=== PATIENT | female | born 1965 | race Caucasian/White ===

== ENCOUNTER 2016-06-24 14:57 | Inpatient (IN) | payer OTHER ==
[~2016-06-24] VITALS: Ht 162.6 cm; Wt 71.1 kg
[~2016-06-24 14:57] MED LIST: IBUP-1542 PO; LORA1TAB PO; ONDA4TAB35 PO; ZOLP10TA PO
[2016-06-24] MEDS ORDERED: ONDANSETRON 4 MG INJ ONE (15:23)
[2016-06-24] MEDS ORDERED: SOD CHLORIDE 0.9% 1,000 ML IV STA (15:33)
[2016-06-24 15:46] LABS: CHLORIDE 103 mmol/L (97-110); SODIUM 144 mmol/L (135-144)
[2016-06-24 15:47] LABS: BASOPHILS % 0.3 % (0.0-2.0); EOSINOPHILS # 0.1 10^3/ul (0.0-0.5); EOSINOPHILS % 0.9 % (0.0-7.0); HEMOGLOBIN 14.7 g/dl (12.0-16.0); LYMPHOCYTES # 4.6 10^3/ul (0.8-2.9); LYMPHOCYTES % 30.8 % (15.0-51.0); MEAN CORPUSCULAR HEMOGLOBIN 30.5 pg (29.0-33.0); MEAN CORPUSCULAR HGB CONC 34.2 g/dl (32.0-37.0); MEAN CORPUSCULAR VOLUME 89.1 fl (82.0-101.0); MEAN PLATELET VOLUME 9.1 fl (7.4-10.4); MONOCYTE # 0.8 10^3/ul (0.3-0.9); MONOCYTES % 5.4 % (0.0-11.0); NEUTROPHIL # 9.3 10^3/ul (1.6-7.5); NEUTROPHILS % 62.6 % (39.0-77.0); PLATELET COUNT 311 10^3/UL (140-440); RED BLOOD COUNT 4.83 10^6/ul (4.20-5.40); UNCORRECTED WBC 14.9 10^3/ul (4.8-10.8); WHITE BLOOD COUNT 14.9 10^3/ul (4.8-10.8)
[2016-06-24 15:49] LABS: ANION GAP 19 (8-16); CARBON DIOXIDE 26 mmol/L (21-31); CREATININE 0.81 mg/dl (0.44-1.00)
[2016-06-24 15:50] LABS: BLOOD UREA NITROGEN 12 mg/dl (7-20); CALCIUM 9.5 mg/dl (8.4-10.2); GLUCOSE 89 mg/dl (70-220)
[2016-06-24 15:51] LABS: CONDITION 1
[2016-06-24 15:55] LABS: INR 0.86; PROTIME 11.7 Sec (12.2-14.2); PT RATIO 0.9
[2016-06-24 15:56] LABS: PARTIAL THROMBOPLASTIN TIME 29.1 Sec (25.0-35.0)
[2016-06-24] MEDS ORDERED: ONDANSETRON 4 MG INJ IV STA (15:56)
[2016-06-24] MEDS ORDERED: DIAZEPAM 5 MG/ML SYG IV ONE ×2 (16:00→16:30)
[2016-06-24 16:02] LABS: TROPONIN-I < 0.010 ng/ml (0.00-0.12)
--- NOTE | 2016-06-24 16:35 | RADRPT ---
PROCEDURE: CT Brain without contrast. CLINICAL INDICATION: Altered mental status, possible stroke TECHNIQUE: Routine CT scan of the brain was performed on a high resolution multi detector scanner without intravenous contrast. One or more of the following dose reduction techniques were used: Auto mated exposure control; Adjustment of the mA and/or kV according to patient size; Use of iterative r econstruction technique. CTDI = 44 mGy. DLP = 630 mGy-cm. COMPARISON: No prior relevant examinations are available for comparison. FINDINGS: Hemorrhage: No evidence of intracranial hemorrhage. Acute ischemic changes: No evidence of acute ischemic changes. Mass effect/Midline shift: None. Parenchymal volume: Within normal limits for age. Ventricular system: Concordant with parenchymal volume. Chronic changes: Small chronic infarcts measuring 5 - 10 mm are present within the left cerebellar h emisphere. Mild chronic-appearing microvascular ischemic changes of the supratentorial white matter . Atherosclerotic calcifications of the cavernous portions of both internal carotid arteries are pre sent. Extracranial soft tissues: Unremarkable. Calvarium: No fractures. Paranasal sinuses: Visualized paranasal sinuses are clear. Mastoid air cells: Visualized mastoid air cells are clear. IMPRESSION: No acute intracranial abnormalities. Mild chronic-appearing microvascular ischemic changes of the supratentorial white matter with small chronic infarcts of the left cerebellar hemisphere. MRI of the brain may be useful for further evaluation. RPTAT: AADD .Francois Keith MD, MD Date Time Electronically viewed and signed by .Francois Keith MD, MD on 06/24/2016 16:35 .B/
--- NOTE | 2016-06-24 17:06 | RADRPT ---
PROCEDURE: MRI Brain without contrast. CLINICAL INDICATION: Vertigo, vomiting, history of cerebellar infarct TECHNIQUE: Multiplanar MRI of the brain without contrast was performed on a 3.0 T scanner with the following sequences obtained: T1-weighted, T2-weighted/FLAIR, diffusion weighted (with ADC map), GR E. COMPARISON: CT brain 06/24/2016 FINDINGS: There are chronic infarcts in the left cerebellar hemisphere. No acute/recent ischemic infarction o r intracranial hemorrhage / blood degradation products are identified. No extra-axial fluid collect ion is seen. There is no mass effect. No midline shift is identified. The ventricles and sulci are within normal limits for size and configuration. Minimal areas of increased T2 / FLAIR signal intensity are present in the periventricular and deep w fortunato matter, nonspecific but likely related to chronic small vessel ischemic changes. Flow voids are identified in the proximal intracranial arteries and dural sinuses suggesting patency . There is a small polyp or retention cyst at the left sphenoid sinus. IMPRESSION: 1. No evidence of acute intracranial pathology. 2. Chronic left cerebellar infarcts. 3. Minimal chronic small vessel ischemic changes. RPTAT: VV .Checo Clifton MD, MD Date Time Electronically viewed and signed by .Checo Clifton MD, on 06/24/2016 17:06 .O/
--- NOTE | 2016-06-24 17:14 | RADRPT ---
PROCEDURE: Chest Radiograph. CLINICAL INDICATION: Stroke TECHNIQUE: Single frontal chest radiograph. COMPARISON: Chest radiograph 04/23/2016 FINDINGS: The heart is magnified. Lung volumes are moderately decreased in there is basilar atelectasis and c entral compressive changes. No infiltrate or effusion is seen. The bones are intact. IMPRESSION: 1. Low lung volumes with basilar atelectasis and central compressive changes. RPTAT: HJBF .Joseph Mcallister MD, MD Date Time Electronically viewed and signed by .Joseph Mcallister MD, on 06/24/2016 17:14 .B/
--- NOTE | 2016-06-24 20:34 | ERA ---
ER Documentation Chief Complaint Date/Time DATE: 06/24/16 TIME: 20:24 Chief Complaint DIZZINESS & HEADACHE ONSET 2HRS AGO; WORSENING VERTIGO & VOMITING X15 MIN HPI This is a 50-year-old female with a history of a cerebellar stroke who is up in the hospital visiting a friend of the family when she says she suddenly felt the room spinning severely . She states she had to grab a hold of the wall to prevent from falling but that she did pass out for 3 seconds. She says she is worried this is another stroke because this is how she presented with her prior cerebellar stroke. She says she does not have chronic vertigo. She had no trouble seeing and had no focal neurological deficits peripherally. She says she is speaking slower than usual and has no problems swallowing. She is complaining of an occipital headache. She has had a few rounds of nausea vomiting when the spinning is severe. This occurred just prior to arrival. She was a code green ROS All systems reviewed and are negative except as per history of present illness. Medications Home Meds Active Scripts Zolpidem Tartrate* (Ambien*) 10 Mg Tablet, 10 MG PO QHS Y for INSOMNIA, #10 TAB Prov:BHARATH JARA MD 04/23/16 Lorazepam* (Lorazepam*) 1 Mg Tablet, 1 MG PO BID Y for ANXIETY, #24 TAB Prov:BHARATH JARA MD 04/23/16 Ondansetron Hcl* (Zofran* ODT) 4 mg -ODT Tab.disper, 4 MG PO Q6 Y for NAUSEA AND /OR VOMITING, #10 TAB Prov:JOY HASSAN MD 01/18/16 Ibuprofen* (Motrin*) 600 Mg Tab, 600 MG PO Q6 Y for PAIN, #20 TAB With food or milk Prov:JOY HASSAN MD 01/18/16 Allergies Allergies: Coded Allergies: No Known Allergy (Unverified , 12/19/14) PMhx/Soc Medical and Surgical Hx: pt denies Surgical Hx History of Surgery: No Anesthesia Reaction: No Hx Neurological Disorder: Yes (STROKE, VERTIGO) Hx Respiratory Disorders: No Hx Cardiac Disorders: Yes (HEART MURMUR) Hx Psychiatric Problems: No Hx Miscellaneous Medical Probl: Yes (ANXIETY) Hx Alcohol Use: No Hx Substance Use: No Hx Tobacco Use: No Smoking Status: Never smoker FmHx Family History: No coronary disease Physical Exam Vitals Vital Signs Date Time Temp Pulse Resp B/P Pulse Ox O2 Delivery O2 Flow Rate FiO2 06/24/16 15:10 Nasal Cannula 2 06/24/16 14:57 97.4 89 24 130/85 100 Physical Exam Const: Well-developed, well-nourished Head: Atraumatic, normocephalic Eyes: Normal Conjunctiva, PERRLA, EOMI, normal sclera, no nystagmus ENT: Normal External Ears, Nose and Mouth, moist mucus membranes. Neck: Full range of motion. No meningismus, no lymphadenopathy. Resp: Clear to auscultation bilaterally, no wheezing, rhonchi, rales Cardio: Regular rate and rhythm, no murmurs, S1 S2 present Abd: Soft, non tender x 4, non distended. Normal bowel sounds, no guarding or rebound, no pulsitile abdominal masses or bruits Skin: No petechiae or rashes, no ecchymosis , no maculopapular rash Back: No midline or flank tenderness Ext: No cyanosis, or edema, FROM x 4, normal inspection, neurovascularly intact x 4 Neur: Awake and alert, STR 5/5 x 4, sensation intact x 4, no focal findings, cerebellum intact, any movement of the bed will induce vertigo. She does not want me to move her Psych: Normal Mood and Affect Result Diagram: 06/24/16 1530 06/24/16 1530 Results 24 hrs Laboratory Tests Test 06/24/16 15:30 Activated Partial Thromboplast Time 29.1Sec Anion Gap 19 Basophils # 0.010^3/ul Basophils % 0.3% Blood Urea Nitrogen 12mg/dl Calcium Level 9.5mg/dl Carbon Dioxide Level 26mmol/L Chloride Level 103mmol/L Creatinine 0.81mg/dl Eosinophils # 0.110^3/ul Eosinophils % 0.9% Glucose Level 89mg/dl Hematocrit 43.0% Hemoglobin 14.7g/dl INR International Normalized Ratio 0.86 Lymphocytes # 4.610^3/ul Lymphocytes % 30.8% Mean Corpuscular Hemoglobin 30.5pg Mean Corpuscular Hemoglobin Concent 34.2g/dl Mean Corpuscular Volume 89.1fl Mean Platelet Volume 9.1fl Monocytes # 0.810^3/ul Monocytes % 5.4% Neutrophils # 9.310^3/ul Neutrophils % 62.6% Nucleated Red Blood Cells # 0.010^3/ul Nucleated Red Blood Cells % 0.0/100WBC Platelet Count 04280^3/UL Potassium Level 4.0mmol/L Prothrombin Time 11.7Sec Prothrombin Time Ratio 0.9 Red Blood Count 4.8310^6/ul Red Cell Distribution Width 14.0% Sodium Level 144mmol/L Troponin I < 0.010ng/ml White Blood Count 14.910^3/ul Current Medications Medications (Trade) Dose Ordered Sig/Julain Route PRN Reason Start Time Stop Time Status Last Admin Dose Admin Sodium Chloride (NS) 1,000 ml @ 1,000 mls/hr Q1H STAT IV 06/24/16 15:33 06/24/16 16:32 DC 06/24/16 15:57 Diazepam (Valium) 10 mg ONCE ONCE IV 06/24/16 16:00 06/24/16 16:01 DC 06/24/16 15:57 Ondansetron HCl (Zofran Inj) 4 mg STK-MED ONCE .ROUTE 06/24/16 15:23 06/24/16 15:39 DC Ondansetron HCl (Zofran Inj) 4 mg ONCE STAT IV 06/24/16 15:56 06/24/16 15:57 DC 06/24/16 16:02 Diazepam (Valium) 5 mg ONCE ONCE IV 06/24/16 16:30 06/24/16 16:31 DC 06/24/16 18:52 Procedures/MDM PROCEDURE: Chest Radiograph. CLINICAL INDICATION: Stroke TECHNIQUE: Single frontal chest radiograph. COMPARISON: Chest radiograph 04/23/2016 FINDINGS: The heart is magnified. Lung volumes are moderately decreased in there is basilar atelectasis and central compressive changes. No infiltrate or effusion is seen. The bones are intact. IMPRESSION: 1. Low lung volumes with basilar atelectasis and central compressive changes. RPTAT: HJBF .Joseph Mcallister MD, Date Time Electronically viewed and signed by .Joseph Mcallister MD, on 2016 17:14 .B/ CC: RADAMES VEE DO PROCEDURE: CT Brain without contrast. CLINICAL INDICATION: Altered mental status, possible stroke TECHNIQUE: Routine CT scan of the brain was performed on a high resolution multi detector scanner without intravenous contrast. One or more of the following dose reduction techniques were used: Automated exposure control; Adjustment of the mA and/or kV according to patient size; Use of iterative reconstruction technique. CTDI = 44 mGy. DLP = 630 mGy-cm. COMPARISON: No prior relevant examinations are available for comparison. FINDINGS: Hemorrhage: No evidence of intracranial hemorrhage. Acute ischemic changes: No evidence of acute ischemic changes. Mass effect/Midline shift: None. Parenchymal volume: Within normal limits for age. Ventricular system: Concordant with parenchymal volume. Chronic changes: Small chronic infarcts measuring 5 - 10 mm are present within the left cerebellar hemisphere. Mild chronic-appearing microvascular ischemic changes of the supratentorial white matter. Atherosclerotic calcifications of the cavernous portions of both internal carotid arteries are present. Extracranial soft tissues: Unremarkable. Calvarium: No fractures. Paranasal sinuses: Visualized paranasal sinuses are clear. Mastoid air cells: Visualized mastoid air cells are clear. IMPRESSION: No acute intracranial abnormalities. Mild chronic-appearing microvascular ischemic changes of the supratentorial white matter with small chronic infarcts of the left cerebellar hemisphere. MRI of the brain may be useful for further evaluation. RPTAT: AADD .Francois Keith MD, MD Date Time Electronically viewed and signed by .Francois Keith MD, MD on 06/24/2016 16:35 .B/ CC: RADAMES VEE DO PROCEDURE: MRI Brain without contrast. CLINICAL INDICATION: Vertigo, vomiting, history of cerebellar infarct TECHNIQUE: Multiplanar MRI of the brain without contrast was performed on a 3.0 T scanner with the following sequences obtained: T1-weighted, T2-weighted/ FLAIR, diffusion weighted (with ADC map), GRE. COMPARISON: CT brain 06/24/2016 FINDINGS: There are chronic infarcts in the left cerebellar hemisphere. No acute/recent ischemic infarction or intracranial hemorrhage / blood degradation products are identified. No extra-axial fluid collection is seen. There is no mass effect. No midline shift is identified. The ventricles and sulci are within normal limits for size and configuration. Minimal areas of increased T2 / FLAIR signal intensity are present in the periventricular and deep white matter, nonspecific but likely related to chronic small vessel ischemic changes. Flow voids are identified in the proximal intracranial arteries and dural sinuses suggesting patency. There is a small polyp or retention cyst at the left sphenoid sinus. IMPRESSION: 1. No evidence of acute intracranial pathology. 2. Chronic left cerebellar infarcts. 3. Minimal chronic small vessel ischemic changes. RPTAT: VV .Checo Clifton MD, MD Date Time Electronically viewed and signed by .Checo Clifton MD, MD on 06/24/2016 17:06 .O/ CC: RADAMES VEE DO EKG: Rate/Rhythm: Normal Sinus Rhythm,NL intervals QRS, ST, QT: NORMAL ID, QRS, QT] Impression: NORMAL EKG Patient had multiple rounds of Valium IV she took Antivert prior to coming down stairs to the ER. She still had a few episodes of vomiting. Currently shows she still has occipital headache and still vertiginous but better. We will admit her for intractable vertigo. MRI does not show any evidence of stroke. CAT scan shows no intracranial hemorrhage. This is likely a peripheral vertigo but will need observation in case she does develop some neurological symptoms as this is how she presented with her last stroke Departure Diagnosis: Primary Impression: Vertigo Additional Impression: Intractable vomiting Qualified Code: R11.2 - Intractable vomiting with nausea, unspecified vomiting type Condition: Stable RADAMES VEE DO Jun 24, 2016 20:33
[2016-06-24] MEDS ORDERED: SIMV20TA97 PO (20:46)
[2016-06-24] MEDS ORDERED: ASPI325T4 PO (20:46)
[2016-06-24] MEDS ORDERED: MECL-77 PO (20:47)
[2016-06-24 21:08] VITALS: TEMP 97.9
[2016-06-24] MEDS ORDERED: ACETAMINOPHEN 325 MG TAB PO PRN ×2 (22:30→23:00)
[2016-06-24] MEDS ORDERED: ONDANSETRON 4 MG INJ IV PRN ×2 (22:30→23:00)
[2016-06-24] MEDS: SOD CHLORIDE 0.9% 1,000 ML IV SCH (22:38)
--- NOTE | 2016-06-24 22:48 | HP ---
Date/Time of Note Date/Time of Note DATE: 06/24/16 TIME: 22:41 Assessment/Plan VTE Prophylaxis VTE Prophylaxis Intervention: LMWH Assessment/Plan Assessment/Plan 50 yo female with past medical history of left cerebellar infarct 2013, who presents with Code Green 2/2 to having intractable dizziness. 1. Vertigo - repeat CVA vs other - will admit the patient to telemetry, consult neurology, fall precautions, neurovascular checks, ECHO, PT/OT, continue with antivert and aspirin, check cardiac enzymes, TSH, Mag level 2. Intractable nausea/vomiting - continue with zofran, if worsening consider reglan 3. Leukocytosis - reactive - will monitor trend, if worsening, start antibiotics , obtain cultures 4. GI ppx - pepcid 5. DVT ppx - lovenox answered all of her questions. as per clinical course. this history and physical took greater then 45 minutes to complete HPI/ROS Admit Date/Time Admit Date/Time 06/24/2016, 10:41 pm Hx of Present Illness 50 yo female with past medical history of left cerebellar infarct 2013, who presents with Code Green 2/2 to having intractable dizziness. The patient usually takes her antivert to help, because of the residual side effect of her cerebellar infarct. It was not getting better, had intractable nausea/vomiting x 3 episodes NBNB, and worsening dizziness. Denies any chest pain, shortness of breath, urinary/bowel irregularities or other constitutional symptoms. No recent travel or illnesses. ED course: zofran ROS 14 point review of systems completed, please refer to HPI for any positive findings PMH/Family/Social Past Medical History CVA cerebellar Past Surgical History TBL Family History Significant Family History: heart disease, cancer, diabetes, hypertension Social History Alcohol Use: none Smoking Status: Never smoker Drug Use: none Exam/Review of Systems Vital Signs Vitals Vital Signs Date Time Temp Pulse Resp B/P Pulse Ox O2 Delivery O2 Flow Rate FiO2 06/24/16 21:08 97.9 82 17 103/60 99 Room Air 06/24/16 15:10 2 Exam Exam Gen Heike: moderate distress 2/2 headache, AAOx4 HEENT: NC/AT, PERRLA, EOMI, no pharyngeal erythema, no tonsillar exudates, no lymphadenopathy, no JVD, no carotid bruits NECK: supple, no thyromegaly THORAX: symmetrical, no obvious deformities CV: S1S2, RRR, no M/G/R Lungs: CTAB no W/C/R/R Abd: soft, NT/ND, +BS, no rebound, no guarding, neg HSM EXT: no edema, no ecchymosis, no clubbing, FROM Neuro: CN II-XII grossly intact, difficult to asses rhombergs 2/2 dizziness Psych: good mentation, alert and oriented, good mood and affect Skin: C/D/I Labs Result Diagram: 06/24/16 1530 06/24/16 1530 Procedures Procedures CXR IMPRESSION: 1. Low lung volumes with basilar atelectasis and central compressive changes. MRI brain IMPRESSION: 1. No evidence of acute intracranial pathology. 2. Chronic left cerebellar infarcts. 3. Minimal chronic small vessel ischemic changes. CT brain IMPRESSION: No acute intracranial abnormalities. Mild chronic-appearing microvascular ischemic changes of the supratentorial white matter with small chronic infarcts of the left cerebellar hemisphere. MRI of the brain may be useful for further evaluation. CORY CHASE MD Jun 24, 2016 22:48
[2016-06-24] MEDS ORDERED: LORAZEPAM 2 MG INJ IV PRN (23:00)
[2016-06-24] MEDS ORDERED: NACL 0.9% 3 ML SYG IV SCH (23:00)
[2016-06-24] MEDS ORDERED: MECLIZINE 25 MG TAB PO PRN (23:00)
[2016-06-24] MEDS ORDERED: ATORVASTATIN 10 MG TAB PO SCH (23:00)
[2016-06-24] MEDS ORDERED: DOCUSATE SODIUM 100 MG CAP PO PRN (23:00)
[2016-06-24] MEDS ORDERED: morphine 2 MG INJ IV PRN (23:00)
[2016-06-24] MEDS ORDERED: NITROGLYCERIN (SL) 0.4 MG TAB SL PRN (23:00)
[2016-06-25] VITALS (9 sets, daily range): BP systolic 91–114; BP diastolic 51–70; PULSE 66–87; RESP 17–20; Ht 162.6 cm; Wt 71.1 kg
[2016-06-25] MEDS: SOD CHLORIDE 0.9% 1,000 ML IV SCH (00:18)
[2016-06-25 00:19] LABS: CREATINE KINASE 70 IU/L (23-200)
[2016-06-25 00:20] LABS: CHOL/HDL RATIO 5.4 RATIO; MAGNESIUM 2.1 mg/dl (1.7-2.5)
[2016-06-25 00:29] LABS: CK-MB < 0.22 ng/ml (0.0-2.4)
[2016-06-25 00:32] LABS: TROPONIN-I < 0.010 ng/ml (0.00-0.12)
[2016-06-25 00:52] LABS: THYROID STIMULATING HORMONE 0.724 MIU/L (0.465-4.680)
[2016-06-25 08:02] LABS: BASOPHIL # 0.1 10^3/ul (0.0-0.1); BASOPHILS % 0.4 % (0.0-2.0); EOSINOPHILS # 0.1 10^3/ul (0.0-0.5); EOSINOPHILS % 0.4 % (0.0-7.0); HEMATOCRIT 37.9 % (37.0-47.0); HEMOGLOBIN 12.7 g/dl (12.0-16.0); LYMPHOCYTES # 3.5 10^3/ul (0.8-2.9); LYMPHOCYTES % 20.1 % (15.0-51.0); MEAN CORPUSCULAR HEMOGLOBIN 30.4 pg (29.0-33.0); MEAN CORPUSCULAR HGB CONC 33.6 g/dl (32.0-37.0); MEAN CORPUSCULAR VOLUME 90.5 fl (82.0-101.0); MEAN PLATELET VOLUME 9.1 fl (7.4-10.4); MONOCYTE # 0.8 10^3/ul (0.3-0.9); MONOCYTES % 4.5 % (0.0-11.0); NEUTROPHILS % 74.6 % (39.0-77.0); PLATELET COUNT 271 10^3/UL (140-440); POTASSIUM 3.8 mmol/L (3.5-5.1); RED BLOOD COUNT 4.19 10^6/ul (4.20-5.40); RED CELL DISTRIBUTION WIDTH 13.9 % (11.5-14.5); UNCORRECTED WBC 17.4 10^3/ul (4.8-10.8); WHITE BLOOD COUNT 17.4 10^3/ul (4.8-10.8)
[2016-06-25 08:03] LABS: CONDITION 1
[2016-06-25 08:04] LABS: CREATININE 0.8 mg/dl (0.44-1.00)
[2016-06-25 08:05] LABS: CALCIUM 9.2 mg/dl (8.4-10.2)
[2016-06-25 08:51] LABS: CREATINE KINASE 49 IU/L (23-200)
[2016-06-25] MEDS ORDERED: ENOXAPARIN 40 MG/0.4 ML SYG SC SCH (09:00)
[2016-06-25] MEDS ORDERED: ASPIRIN 325 MG TAB PO SCH (09:00)
[2016-06-25] MEDS ORDERED: FAMOTIDINE 20 MG INJ IV SCH (09:00)
[2016-06-25 09:17] LABS: CK-MB < 0.22 ng/ml (0.0-2.4); TROPONIN-I < 0.012 ng/ml (0.00-0.12)
--- NOTE | 2016-06-25 12:02 | CONS ---
Date/Time of Note Date/Time of Note DATE: 06/25/16 TIME: 11:54 Assessment/Plan Assessment/Plan Chief Complaint/Hosp Course 50 year old female with history of previous left cerebellar infarcts unclear etiology presenting with severe vertigo, treated with IVF and meclizine with improvement of symptoms. -MRI Brain without contrast reviewed- chronic left cerebellar infarcts -may continue on current dose of ASA and statin for secondary stroke prevention -continue on prn Meclizine for vertigo -outpatient PT to help with vertigo exercises -may be discharged later today if symptoms are resolved -outpatient neurology follow up Problems: Consultation Date/Type/Reason Admit Date/Time 06/24/2016, 10:41 pm Date of Consultation: Jun 25, 2016 Type of Consultation: Neurology Reason for Consultation vertigo Referring Provider: CORY CHASE MD Hx of Present Illness 50 year old female with history of previous left cerebellar infarcts December 2014 presented with severe vertigo and intractable nausea/vomiting at that time. Her symptoms at that time persisted for over 9 days and eventually she received an MRI at [facility] confirming cerebellar stroke. Since then she occasionally experiences vertigo for which she takes prn meclizine at home, occasionally has bouts of anxiety also takes prn ativan. She presents due to complaints of headache and severe dizziness room spinning sensation yesterday, on arrival MRI was done to r/o possibility of new cerebellar stroke given previous history, showed no evidence of new ischemia. She was given IVF, anti-emetics and meclizine with resolution of symptoms. At home she takes ASA 325 mg and Simvastatin for secondary stroke prevention, etiology of previous stroke is unclear. In the past she has attempted Ramone's maneuver with worsening of sx. Past Medical History prior cerebellar stroke migraine motion sickness vertigo chronic Social History Alcohol Use: none Smoking Status: Current every day smoker Drug Use: none Exam/Review of Systems Vital Signs Vitals Vital Signs Date Time Temp Pulse Resp B/P Pulse Ox O2 Delivery O2 Flow Rate FiO2 06/25/16 08:29 68 06/25/16 08:15 97.7 17 91/55 93 06/25/16 04:27 Room Air 06/24/16 15:10 2 Intake and Output 06/24/16 06/24/16 06/25/16 15:00 23:00 07:00 Intake Total 625 ml Balance 625 ml Exam Constitutional: alert, oriented, well developed Psych: no complaints Head: atraumatic, normocephalic Eyes: EOMI, nl conjunctiva Neurological: CLINICAL MATERIAL [employer]ER II-XII intact, DTR's symmetric, nl mental status, nl speech Results Result Diagram: 06/25/16 0630 06/25/16 0630 Results 24 hrs Laboratory Tests Test 06/24/16 15:30 06/24/16 23:55 06/25/16 06:30 Activated Partial Thromboplast Time 29.1 Anion Gap 19 H 13 Basophils # 0.0 0.1 Basophils % 0.3 0.4 Blood Urea Nitrogen 12 15 Calcium Level 9.5 9.2 Carbon Dioxide Level 26 29 Chloride Level 103 107 Creatinine 0.81 0.80 Eosinophils # 0.1 0.1 Eosinophils % 0.9 0.4 Glucose Level 89 108 Hematocrit 43.0 37.9 Hemoglobin 14.7 12.7 INR International Normalized Ratio 0.86 Lymphocytes # 4.6 H 3.5 H Lymphocytes % 30.8 20.1 Mean Corpuscular Hemoglobin 30.5 30.4 Mean Corpuscular Hemoglobin Concent 34.2 33.6 Mean Corpuscular Volume 89.1 90.5 Mean Platelet Volume 9.1 9.1 Monocytes # 0.8 0.8 Monocytes % 5.4 4.5 Neutrophils # 9.3 H 13.0 H Neutrophils % 62.6 74.6 Nucleated Red Blood Cells # 0.0 0.0 Nucleated Red Blood Cells % 0.0 0.0 Platelet Count 311 271 Potassium Level 4.0 3.8 Prothrombin Time 11.7 L Prothrombin Time Ratio 0.9 Red Blood Count 4.83 4.19 L Red Cell Distribution Width 14.0 13.9 Sodium Level 144 145 H Troponin I < 0.010 < 0.010 < 0.012 White Blood Count 14.9 #H 17.4 H Cholesterol Level 262 H Cholesterol/HDL Ratio 5.4 Creatine Kinase 70 49 Creatine Kinase Index 0.3 0.4 Creatinine Kinase MB (Mass) < 0.22 < 0.22 HDL Cholesterol 48 Hemoglobin A1c 5.3 LDL Cholesterol, Calculated 184 Magnesium Level 2.1 Thyroid Stimulating Hormone (TSH) 0.724 Triglycerides Level 149 Medications Medications Current Medications Lorazepam (Ativan) 0.5 mg Q6H PRN IV ANXIETY; Start 06/24/16 at 23:00 Ondansetron HCl (Zofran Inj) 4 mg Q6H PRN IV NAUSEA AND/OR VOMITING; Start 04/30 at 23:00 Nitroglycerin (Nitroglycerin (Sl Tab) 0.4 Mg) 1 tab Q5M PRN SL CHEST PAIN; Start 06/24/16 at 23:00 Acetaminophen (Tylenol Tab) 650 mg Q6H PRN PO PAIN LEVEL 1-3 OR FEVER; Start at 23:00 Morphine Sulfate (morphine) 2 mg Q4H PRN IV PAIN LEVEL 7-10; Start 06/24/16 at 23:00 Docusate Sodium (Colace) 100 mg Q12H PRN PO CONSTIPATION; Start 06/24/16 at 23: 00 Famotidine (Pepcid Iv) 20 mg Q12 IV Last administered on 06/25/16 08:23; Admin Dose 20 MG; Start 06/25/16 at 09:00 Enoxaparin Sodium (Lovenox) 40 mg DAILY SC Last administered on 06/25/16 08:24 ; Admin Dose 40 MG; Start 06/25/16 at 09:00 Aspirin (Aspirin) 325 mg DAILY PO Last administered on 06/25/16 08:23; Admin Dose 325 MG; Start 06/25/16 at 09:00 Meclizine HCl (Antivert) 25 mg Q8H PRN PO DIZZINESS Last administered on 00:09; Admin Dose 25 MG; Start 06/24/16 at 23:00 Atorvastatin Calcium (Lipitor) 10 mg DAILY@21 PO Last administered on 00:08; Admin Dose 10 MG; Start 06/24/16 at 23:00 MEAGHAN FARIAS MD Jun 25, 2016 12:02
--- NOTE | 2016-06-25 13:44 | RADRPT ---
Echocardiogram Report Patient Name: ADLEN MANNING Gender: Female Date: 1965 Study Date: 25-Jun-2016 Coverer: Susy Cui [facility] Location: [id number] Ref. Physician: CORY CHASE Quality: Good Procedures: Transthoracic echocardiogram with complete 2D, M-Mode, and doppler examination. Indications: Vertigo. 2D/M Mode Doppler Measurement Value Normal Ranges Measurement Value Normal Ranges LVIDd 2D 5.1 3.5 - 5.6 cm AV Peak Mark 1.3 m/sec LVIDs 2D 2.8 2.1 - 4.1 cm AV Peak PG 6.0 mmHg FS 2D 44.9 % LVOT Peak Mark 0.9 m/sec LVPWd 2D 0.8 0.6 - 1.1 cm LVOT Peak PG 3.0 mmHg IVSd 2D 0.7 0.6 - 1.1 cm MV E Peak Mark 0.8 m/sec IVS/LVPW 2D 0.9 MV A Peak Mark 0.6 m/sec AoR Diam 2D 3.0 2.0 - 3.7 cm MV E/A 1.4 LA/Ao 2D 1 0 - 1 MV Decel Time 190 msec EDV 2D 133.0 cm3 MV E/A 1.4 ESV 2D 22.2 cm3 LA Dimen 2D 2.8 2.3 - 4.0 cm Findings Left Ventricle: Normal left ventricular systolic function. Normal left ventricular cavity size. Normal left ventricular wall thickness. Ejection fraction is visually estimated at 5560 %. Tissue Doppler/Mitral Doppler indices are within normal limits. Right Ventricle: Normal right ventricular size. Normal right ventricular systolic function. Left Atrium: The left atrium is normal in size. Right Atrium: The right atrium is normal in size. Mitral Valve: Normal appearance and function of the mitral valve with trace physiologic regurgitation. Aortic Valve: Normal appearance of the aortic valve. No significant aortic stenosis or insufficiency. Tricuspid Valve: Normal appearance of the tricuspid valve. Unable to obtain RVSP due to minimal presence of tricuspid regurgitation. Pericardium: Normal pericardium with no significant pericardial effusion. Aorta: Normal aortic root. IVC: Normal size and normal respiratory collapse consistent with normal right atrial pressure. Conclusions 1.Normal left ventricular systolic function. Normal left ventricular cavity size. Normal left ventricular wall thickness. Ejection fraction is visually estimated at 55-60 %. Tissue Doppler/Mitral Doppler indices are within normal limits. 2.Normal appearance and function of the mitral valve with trace physiologic regurgitation. 3.Normal appearance of the tricuspid valve. Unable to obtain RVSP due to minimal presence of tricuspid regurgitation. Electronically Signed By: Marshall Calloway 25-Jun-2016 13:44:08 -0800 Patient Name: ALDEN MANNING Study Date: 25-Jun-[id number]
--- NOTE | 2016-06-25 14:36 | DS ---
Date/Time of Note Date/Time of Note DATE: 06/25/16 TIME: 14:30 Discharge Summary Admission/Discharge Info Admit Date/Time Jun 24, 2016 at 22:21 Discharge Date/Time Final Diagnosis 1. Vertigo - due to old cerebellar infarct, no acute infarct on MRI, meclizine prn 2. Intractable nausea/vomiting, due to vertigo, resolved 3. Leukocytosis, like reactive, no source of infection Patient Condition: Stable Procedures [place] [id number] Radiology Main Line: [phone] DIAGNOSTIC IMAGING REPORT Patient: ALDEN MANNING : 1965 Age: 50 Sex: F MR #: [id number] DOS: 06/24/16 1533 Ordering MD: RADAMES VEE DO Location: E/R Room/Bed: PROCEDURE: MRI Brain without contrast. CLINICAL INDICATION: Vertigo, vomiting, history of cerebellar infarct TECHNIQUE: Multiplanar MRI of the brain without contrast was performed on a 3.0 T scanner with the following sequences obtained: T1-weighted, T2-weighted/ FLAIR, diffusion weighted (with ADC map), GRE. COMPARISON: CT brain 06/24/2016 FINDINGS: There are chronic infarcts in the left cerebellar hemisphere. No acute/recent ischemic infarction or intracranial hemorrhage / blood degradation products are identified. No extra-axial fluid collection is seen. There is no mass effect. No midline shift is identified. The ventricles and sulci are within normal limits for size and configuration. Minimal areas of increased T2 / FLAIR signal intensity are present in the periventricular and deep white matter, nonspecific but likely related to chronic small vessel ischemic changes. Flow voids are identified in the proximal intracranial arteries and dural sinuses suggesting patency. There is a small polyp or retention cyst at the left sphenoid sinus. IMPRESSION: 1. No evidence of acute intracranial pathology. 2. Chronic left cerebellar infarcts. 3. Minimal chronic small vessel ischemic changes. RPTAT: VV .Checo Clifton MD, Date Time Electronically viewed and signed by .Checo Clifton MD, MD on 06/24/2016 17:06 Hx of Present Illness 50 yo female with past medical history of left cerebellar infarct 2013, who presents with Code Green 2/2 to having intractable dizziness. The patient usually takes her antivert to help, because of the residual side effect of her cerebellar infarct. It was not getting better, had intractable nausea/vomiting x 3 episodes NBNB, and worsening dizziness. Denies any chest pain, shortness of breath, urinary/bowel irregularities or other constitutional symptoms. No recent travel or illnesses. Hospital Course 50 year old female with history of previous left cerebellar infarcts unclear etiology presenting with severe vertigo, treated with IVF and meclizine with improvement of symptoms. -MRI Brain without contrast reviewed- chronic left cerebellar infarcts -may continue on current dose of ASA and statin for secondary stroke prevention -continue on prn Meclizine for vertigo -outpatient PT to help with vertigo exercises -may be discharged later today if symptoms are resolved -outpatient neurology follow up Home Meds Reported Medications Meclizine Hcl* (Meclizine Hcl*) 25 Mg Tablet, 25 MG PO Q8H Y for DIZZINESS, TAB 06/24/16 Simvastatin* (Zocor*) 20 Mg Tablet, 20 MG PO QHS, #30 TAB 06/24/16 Aspirin* (Aspirin*) 325 Mg Tablet, 325 MG PO DAILY, TAB 06/24/16 Discontinued Scripts Zolpidem Tartrate* (Ambien*) 10 Mg Tablet, 10 MG PO QHS Y for INSOMNIA, #10 TAB Prov:BHARATH JARA MD 04/23/16 Lorazepam* (Lorazepam*) 1 Mg Tablet, 1 MG PO BID Y for ANXIETY, #24 TAB Prov:BHARATH JARA MD 04/23/16 Ondansetron Hcl* (Zofran* ODT) 4 mg -ODT Tab.disper, 4 MG PO Q6 Y for NAUSEA AND /OR VOMITING, #10 TAB Prov:JOY HASSAN MD 01/18/16 Ibuprofen* (Motrin*) 600 Mg Tab, 600 MG PO Q6 Y for PAIN, #20 TAB With food or milk Prov:JOY HASSAN MD 01/18/16 Follow-up Plan PCP 2 weeks Pending Labs Laboratory Tests Test 06/24/16 15:30 06/24/16 23:55 06/25/16 06:30 Activated Partial Thromboplast Time 29.1Sec (25.0-35.0) Anion Gap 19 (8-16) 13 (8-16) Basophils # 0.010^3/ul (0.0-0.1) 0.110^3/ul (0.0-0.1) Basophils % 0.3% (0.0-2.0) 0.4% (0.0-2.0) Blood Urea Nitrogen 12mg/dl (7-20) 15mg/dl (7-20) Calcium Level 9.5mg/dl (8.4-10.2) 9.2mg/dl (8.4-10.2) Carbon Dioxide Level 26mmol/L (21-31) 29mmol/L (21-31) Chloride Level 103mmol/L (97-110) 107mmol/L (97-110) Creatinine 0.81mg/dl (0.44-1.00) 0.80mg/dl (0.44-1.00) Eosinophils # 0.110^3/ul (0.0-0.5) 0.110^3/ul (0.0-0.5) Eosinophils % 0.9% (0.0-7.0) 0.4% (0.0-7.0) Glucose Level 89mg/dl (70-220) 108mg/dl (70-220) Hematocrit 43.0% (37.0-47.0) 37.9% (37.0-47.0) Hemoglobin 14.7g/dl (12.0-16.0) 12.7g/dl (12.0-16.0) INR International Normalized Ratio 0.86 Lymphocytes # 4.610^3/ul (0.8-2.9) 3.510^3/ul (0.8-2.9) Lymphocytes % 30.8% (15.0-51.0) 20.1% (15.0-51.0) Mean Corpuscular Hemoglobin 30.5pg (29.0-33.0) 30.4pg (29.0-33.0) Mean Corpuscular Hemoglobin Concent 34.2g/dl (32.0-37.0) 33.6g/dl (32.0-37.0) Mean Corpuscular Volume 89.1fl (82.0-101.0) 90.5fl (82.0-101.0) Mean Platelet Volume 9.1fl (7.4-10.4) 9.1fl (7.4-10.4) Monocytes # 0.810^3/ul (0.3-0.9) 0.810^3/ul (0.3-0.9) Monocytes % 5.4% (0.0-11.0) 4.5% (0.0-11.0) Neutrophils # 9.310^3/ul (1.6-7.5) 13.010^3/ul (1.6-7.5) Neutrophils % 62.6% (39.0-77.0) 74.6% (39.0-77.0) Nucleated Red Blood Cells # 0.010^3/ul (0.0-0.0) 0.010^3/ul (0.0-0.0) Nucleated Red Blood Cells % 0.0/100WBC (0.0-0.0) 0.0/100WBC (0.0-0.0) Platelet Count 70980^3/UL (140-440) 63260^3/UL (140-440) Potassium Level 4.0mmol/L (3.5-5.1) 3.8mmol/L (3.5-5.1) Prothrombin Time 11.7Sec (12.2-14.2) Prothrombin Time Ratio 0.9 Red Blood Count 4.8310^6/ul (4.20-5.40) 4.1910^6/ul (4.20-5.40) Red Cell Distribution Width 14.0% (11.5-14.5) 13.9% (11.5-14.5) Sodium Level 144mmol/L (135-144) 145mmol/L (135-144) Troponin I < 0.010ng/ml (0.00-0.12) < 0.010ng/ml (0.00-0.12) < 0.012ng/ml (0.00-0.12) White Blood Count 14.910^3/ul (4.8-10.8) 17.410^3/ul (4.8-10.8) Cholesterol Level 262mg/dl (100-200) Cholesterol/HDL Ratio 5.4RATIO Creatine Kinase 70IU/L (23-200) 49IU/L (23-200) Creatine Kinase Index 0.3 0.4 Creatinine Kinase MB (Mass) < 0.22ng/ml (0.0-2.4) < 0.22ng/ml (0.0-2.4) HDL Cholesterol 48mg/dl (37-92) Hemoglobin A1c 5.3% (0-5.9) LDL Cholesterol, Calculated 184mg/dl Magnesium Level 2.1mg/dl (1.7-2.5) Thyroid Stimulating Hormone (TSH) 0.724MIU/L (0.465-4.680) Triglycerides Level 149mg/dl (0-149) KELLY JARAMILLO MD Jun 25, 2016 14:35
== END 2016-06-25 15:38 | disposition home or self-care (01) | DRG 149 ==
LOC: E/R 14:57 → TEL 22:21
PROVIDERS: ADMIT Student in an Organized Health Care Education/Training Program; ATTEND Student in an Organized Health Care Education/Training Program
DX: R42 Dizziness and giddiness (principal); D72.829 Elevated white blood cell count, unspecified; R11.2 Nausea with vomiting, unspecified; Z86.73 Personal history of transient ischemic attack (TIA), and cerebral infarction without residual deficits
CPT/HCPCS: 36415; 70450; 70551; 71010; 80048; 80061; 82550; 82553; 83036; 83735; 84443; 84484; 85025; 85610; 85730; 93005; 93306; 96374; 96375; 96376; 97162; J1650; J2405; J3360; J7030